=== PATIENT | male | born 1955 | race Caucasian/White ===

== ENCOUNTER 2016-10-30 05:30 | Inpatient (IN) | payer OTHER ==
[2016-10-15 10:21] VITALS: BMI 25.0
--- NOTE | 2016-10-15 10:56 | PAT Medication Instructions ---
Service Date Oct 15, 2016. Current Home Medication List Albuterol Sulfate (Proair Respiclick), 2 PUFFS INH Q4H PRN for RN Lisinopril (Zestril), 10 MG PO QAM [Oxycodone], 1 TAB PO PRN Medication Instructions For Your Scheduled Surgery - Hold the following medications the morning of surgery: Lisinopril (Zestril), 10 MG PO QAM - Take the following medications the morning of surgery with a sip of water: Albuterol Sulfate (Proair Respiclick), 2 PUFFS INH Q4H PRN for RN (bring with you to hospital morning of surgery; use if needed) [Oxycodone], 1 TAB PO PRN (okay to take up to 4 hours prior to surgery if needed ) - Take the following medications as scheduled the night before surgery: Albuterol Sulfate (Proair Respiclick), 2 PUFFS INH Q4H PRN for RN (if needed) [Oxycodone], 1 TAB PO PRN (if needed) If you have any questions please call us at [phone] or [phone] or [phone]
--- NOTE | 2016-10-15 11:21 | DIAGNOSTIC IMAGING REPORT ---
TWO VIEW CHEST CLINICAL HISTORY: Preoperative examination. FINDINGS: PA and lateral chest radiographs are obtained. No prior studies are available for comparison at the time of dictation. The heart is top normal for projection and there is atherosclerotic calcification of the thoracic aorta. Emphysema and chronic interstitial thickening are similar to previous. There are scattered calcified granulomas. No airspace consolidation or pleural effusion is seen. There is no pneumothorax. The bony thorax appears intact. IMPRESSION: Emphysema with no active disease in the chest. Electronically signed by: Feliciano Dunlap M.D. 10/15/2016 11:20 AM Dictated Date/Time: 10/15/2016 11:19 AM
[2016-10-15 11:40] LABS: BASO % 0.5 %; BASO ABS # 0.04 K/uL (0-0.2); COMPLETE YES; EOS % 2.2 %; HEMATOCRIT 50.6 % (42-52); IG% 0.1 %; LYMPH % 28.7 %; LYMPH ABS # 2.13 K/uL (1.2-3.4); MEAN CORPUSCULAR HEMOGLOBIN 31.5 pg (25-34); MONO % 8.2 %; NEUT % 60.3 %; PLATELET COUNT 156 K/uL (130-400); RED BLOOD COUNT 5.62 M/uL (4.7-6.1); WHITE BLOOD COUNT 7.42 K/uL (4.8-10.8)
[2016-10-15 11:46] LABS: URINE APPEARANCE CLEAR (CLEAR); URINE BILIRUBIN NEG (NEG); URINE COLOR YELLOW; URINE NITRITE NEG (NEG); URINE PH 7.5 (4.5-7.5); URINE SPECIFIC GRAVITY 1.008 (1.000-1.030); UROBILINOGEN NEG (NEG)
[2016-10-15 11:51] LABS: MANUAL MICROSCOPIC REQUIRED? NO; REVIEW REQ? NO
[2016-10-15 12:08] LABS: BUN/CREATININE RATIO 12.6 (10-20); CALCIUM 10.1 mg/dl (8.5-10.1); CREATININE 1.1 mg/dl (0.60-1.40); POTASSIUM 4.6 mmol/L (3.5-5.1)
[~2016-10-30] VITALS: Ht 165.1 cm; Wt 70.0 kg
[2016-10-30] VITALS (10 sets, daily range): BP systolic 135–150; BP diastolic 84–109; PULSE 81–97; TEMP 36–36.7; O2SAT 94–97; Ht 165.1 cm; Wt 70.0 kg
[~2016-10-30 05:30] MED LIST: ALBU18002 INH; LISI-461 PO; OXYCODONE PO
[2016-10-30] MEDS ORDERED: LACTATED RINGER'S 1000ML 1,000 ML IV SCH (06:00)
[2016-10-30] MEDS ORDERED: PREGABALIN 75 MG CAP PO SCH (06:00)
[2016-10-30] MEDS ORDERED: CeleBREX 200 MG CAP PO SCH (06:00)
[2016-10-30] MEDS ORDERED: CEFAZOLIN 2000 MG/60 ML D5W IV SCH (06:00)
[2016-10-30] MEDS ORDERED: FENTANYL CITRATE INJ 50 MCG/1 ML 2 ML VIAL ONE ×2 (06:28→08:32)
[2016-10-30] MEDS ORDERED: MIDAZOLAM HCL 1 MG/ML 2ML VIAL ONE (06:28)
[2016-10-30] MEDS ORDERED: PROPOFOL IV EMULSION 10 MG/ML 100 ML VIAL IV ONE (06:37)
[2016-10-30] MEDS ORDERED: REMIFENTANIL 1 MG VIAL ONE ×2 (06:39→08:27)
[2016-10-30] MEDS ORDERED: THROMBIN FOR SOLN 20000 UNIT KIT ONE (06:51)
[2016-10-30] MEDS ORDERED: THROMBIN 5000 UNITS KIT ONE (06:51)
[2016-10-30] MEDS ORDERED: BUPIVACAINE/EPINEPHRINE 0.25% 1:200,000 30 ML VIAL ONE (06:52)
[2016-10-30] MEDS ORDERED: BACITRACIN 50000 UNIT VIAL ONE (06:52)
--- NOTE | 2016-10-30 07:36 | History & Physical Bridge Note ---
H&P Re-Evaluation Bridge Note: I have examined the patient, reviewed the History & Physical and in the interval since the performance of the History & Physical I have noted the following changes of clinical significance: No changes noted
[2016-10-30] MEDS ORDERED: LABETALOL HCL IV 5 MG/ML 20ML IV PRN (08:00)
[2016-10-30] MEDS ORDERED: ATROPINE SULFATE 0.1 MG/ML 5ML SYR IV PRN (08:00)
[2016-10-30] MEDS ORDERED: EpHEDrine SULFATE INJ 50 MG/ML AMP IV PRN (08:00)
[2016-10-30] MEDS ORDERED: HYDROmorphone INJ 1 MG/ML SYR IV PRN ×2 (08:00→09:45)
[2016-10-30] MEDS ORDERED: ONDANSETRON INJ 2 MG/ML 2 ML VIAL IV PRN ×2 (08:00→09:45)
[2016-10-30] MEDS ORDERED: MEPERIDINE HCL 25 MG/ML CARP IV PRN (08:00)
[2016-10-30] MEDS ORDERED: HYDROmorphone INJ 2 MG/ML SYR/VIAL ONE ×2 (08:32→09:33)
[2016-10-30] MEDS ORDERED: DEXAMETHASONE SOD INJ 4 MG/ML VIAL ONE (08:54)
[2016-10-30] MEDS ORDERED: LIDOCAINE HCL 2% 2 ML VIAL (20MG/ML) ONE (08:54)
[2016-10-30] MEDS ORDERED: SUCCINYLCHOLINE CHLORIDE 20 MG/ML 10 ML VIAL IV ONE (08:54)
[2016-10-30] MEDS ORDERED: PROPOFOL IV EMULSION 10 MG/ML 20 ML VIAL IV ONE (08:54)
[2016-10-30] MEDS ORDERED: FLOSEAL HEMOSTATIC MATRIX 5ML TOP ONE (09:30)
[2016-10-30] MEDS ORDERED: ONDANSETRON INJ 2 MG/ML 2 ML VIAL ONE (09:36)
[2016-10-30] MEDS ORDERED: PHENYLEPHRINE 100MCG/ML 5ML SYR ONE (09:36)
[2016-10-30] MEDS ORDERED: EpHEDrine SULFATE 50MG/5ML SYR ONE (09:36)
--- NOTE | 2016-10-30 09:40 | [facility] Post Operative Brief Note ---
Immediate Operative Summary Operative Date Oct 30, 2016. Pre-Operative Diagnosis SPINAL STENOSIS Post-Operative Diagnosis SME PREOP Procedure(s) Performed C3-C6 POSTERIOR LAMINECTOMY AND POSTERIOR SPINAL FUSION WITH SPINAL MONITORING Surgeon DR. Cheikh VEGA Material Yard Clerk Surgeon(s) Mica LEAHY PAC Estimated Blood Loss 100ml Findings dict Specimens NONE
[2016-10-30] MEDS ORDERED: LORAZEPAM INJ 1 MG in SYRINGE 0 ML IV PRN (09:45)
[2016-10-30] MEDS ORDERED: HYDROmorphone INJ 0.5 MG/0.5 ML SYR IV PRN (09:45)
[2016-10-30] MEDS ORDERED: ACETAMINOPHEN 325 MG TAB PO PRN (09:45)
[2016-10-30] MEDS ORDERED: OXYCODONE HCL IR 5 MG TAB (IMMEDIATE RELEASE) PO PRN (09:45)
[2016-10-30] MEDS ORDERED: ALBUTEROL HFA INHALER 18 GM INH PRN (09:45)
[2016-10-30] MEDS ORDERED: LORAZEPAM 1 MG TAB PO PRN (09:45)
--- NOTE | 2016-10-30 10:02 | [facility] Operative Report ---
Operative Report Operative Date Oct 30, 2016. Pre-Operative Diagnosis SPINAL STENOSIS Post-Operative Diagnosis SME PREOP Procedure(s) Performed #1 C3 C4 C5 and 6 laminectomies #2 C3 to C6 posterior fusionbilateral #3 C3 to C6 lateral mass screw instrumentationbilateral with K2 M lateral mass screws #4 application of local bone with morselization with the bone mill Surgeon DR. Cheikh VEGA Application Development Director Surgeon(s) Mica LEAHY PAC Estimated Blood Loss 100ml Findings dict Specimens NONE Anesthesia GETA Complication(s) None Disposition Recovery Room / PACU Description of Procedure After identification the patient operative level he's brought to the OR where he underwent induction of anesthesia. He was positioned prone after application spinal cord monitoring leads and Gleason tongs with skull pins. All bony processes well padded. Arms are tucked to the sides and well-padded. Shoulders were taped distally. Posterior cervical area sterilely prepped and draped in usual fashion. I then identified the operative levels and after the skin with half percent Marcaine with epinephrine. Skin incision made from spinous process of C2 to C7. Posterior exposure was accomplished with muscle dissection out to the lateral aspect of the lateral masses bilaterally. Retractors were placed and levels confirmed with fluoroscopy and a marker at C3 4. I then marked the operative levels and prepared lateral masses for subsequent lateral mass screw insertion by creating starting holes the burn drilling to 14 mm unicortical holes with the drill. I did this bilaterally from C3 to C6. I confirmed all screw tracts were unicortical with a ball- tipped probe. An pretapped all screw holes and applied bone wax to the holes. I then seated perform a laminectomy of C3 C4 C5 and C6 the midline by creating a trough laterally with the bur. The lamina and completed the trough with small Kerrison punch. I then removed the interspinous ligament at C2 3 and C6 7 as well as ligament flavum at each level and removed the lamina from C3 to 6 en bloc. This bone was then used as autograft after morselization with a bone mill. I then completed a decompression with Kerrisons perform foraminotomies as necessary focus my tension the right cerebellar is most symptomatically and undercutting the superior edges C7 lamina as well to remove excess ligament flavum. I palpated the nerve roots are free. We then extended the neck to restore some lordosis. I then applied. For hemostasis. I then place lateral mass screws bilaterally from C3 to C6 at all levels using K2M lateral mass screws. Screws were all unicortical. They'll have good purchase. I checked screw length trajectory and position with fluoroscopy. I then applied rods in and From C3-6 bilaterally and final tightened. A cross-link was placed and final tightened. I irrigated with bacitracin solution. Then decorticated the lateral masses from C3 to 6 with a high-speed margarita on both sides and then packed the lateral gutters with bone graft mixture consisting of DBM putty morcellized local bone and infuse BMP collagen sponges and tricalcium phosphate log. From hemostasis and closed in layered fashion with DIPAK drain. All spinal cord monitoring signals were stable throughout the procedure. I attest to the content of the Intraoperative Record and any orders documented therein. Any exceptions are noted below.
[2016-10-30] MEDS: FENTANYL CITRATE INJ 50 MCG/1 ML 2 ML VIAL IV PRN ×4 (10:40→10:55)
--- NOTE | 2016-10-30 10:49 | Anesthesiology Progress Note ---
Anesthesia Post Op Note Date & Time Oct 30, 2016 at 10:49 Vital Signs Pain Intensity: 8.0 Vital Signs Past 12 Hours Date Time Temp Pulse Resp B/P (MAP) Pulse Ox O2 Delivery O2 Flow Rate FiO2 10/30/16 10:40 36.1 95 16 147/97 99 Oxymask 5 10/30/16 10:30 94 16 146/95 99 Oxymask 5 10/30/16 10:26 81 14 97 Mask 11.0 10/30/16 10:20 91 16 144/94 99 Oxymask 10 10/30/16 10:10 94 16 137/95 97 Oxymask 10 10/30/16 10:00 36.2 86 16 117/74 98 Oxymask 10 10/30/16 05:58 36.7 85 20 135/109 96 Room Air 10/30/16 05:52 36.7 85 20 135/109 (118) 96 Room Air Notes Mental Status: alert / awake / arousable, participated in evaluation Pt Amnestic to Procedure: Yes Nausea / Vomiting: adequately controlled Pain: adequately controlled Airway Patency, RR, SpO2: stable & adequate BP & HR: stable & adequate Hydration State: stable & adequate Anesthetic Complications: no major complications apparent
[2016-10-30] MEDS ORDERED: ALBUT/IPRATROP 3MG/0.5MG NEB 3 ML VIAL INH ONE (12:30)
[2016-10-30] MEDS: OXYCODONE/ACETAMINOPHEN 5-325 TAB PO PRN ×2 (12:33→16:30)
[2016-10-30] MEDS: SODIUM CHLORIDE 0.9% 1000ML 1,000 ML IV SCH ×2 (12:33→23:25)
[2016-10-30] MEDS ORDERED: PNEUMOCOCCAL POLYSACCHARIDES 25 MCG/0.5 ML VIAL/SYR IM. ONE (14:00)
[2016-10-30] MEDS ORDERED: PNEUMOCOCCAL ADMINISTRATION CHARGE ONE (14:00)
--- NOTE | 2016-10-30 14:20 | DIAGNOSTIC IMAGING REPORT ---
Cervical spine CERVICAL 2 OR 3 VIEWS CLINICAL HISTORY: C3-C6 PSF posterior fusion TECHNIQUE: Image intensifier COMPARISON STUDY: None FINDINGS: Findings consistent with a posterior fusion from C3 through C6 IMPRESSION: Image intensifier usage for a posterior fusion from C3 through C6 Electronically signed by: Harjit Garcia M.D. 10/30/2016 2:18 PM Dictated Date/Time: 10/30/2016 2:18 PM
[2016-10-30] MEDS: CEFAZOLIN IV 1,000 MG in DEXTROSE 5% 50ML 50 ML IV SCH ×2 (16:30→23:25)
[2016-10-30] MEDS: DEXAMETHASONE INJ 6 MG in SYRINGE 0 ML IV SCH (21:24)
[2016-10-31 03:00] VITALS: BP 153/88; PULSE 78; TEMP 36.6; O2SAT 95
[2016-10-31] MEDS: DEXAMETHASONE INJ 6 MG in SYRINGE 0 ML IV SCH ×2 (05:39→13:21)
[2016-10-31] MEDS: OXYCODONE/ACETAMINOPHEN 5-325 TAB PO PRN ×3 (05:40→21:57)
[2016-10-31] MEDS: CEFAZOLIN IV 1,000 MG in DEXTROSE 5% 50ML 50 ML IV SCH (07:22)
--- NOTE | 2016-10-31 07:32 | Anesthesiology Progress Note ---
Anesthesia Post Op Note Date & Time Oct 31, 2016 at 07:32 Vital Signs Vital Signs Past 12 Hours Date Time Temp Pulse Resp B/P (MAP) Pulse Ox O2 Delivery O2 Flow Rate FiO2 10/31/16 03:00 36.6 78 16 153/88 (109) 95 Room Air 10/30/16 23:30 36.6 85 16 149/86 (107) 94 Room Air 10/30/16 23:20 Room Air Notes Mental Status: alert / awake / arousable, participated in evaluation Pt Amnestic to Procedure: Yes Nausea / Vomiting: adequately controlled Pain: adequately controlled Airway Patency, RR, SpO2: stable & adequate BP & HR: stable & adequate Hydration State: stable & adequate Anesthetic Complications: no major complications apparent
[2016-10-31 07:52] VITALS: BP 162/96; PULSE 71; TEMP 36.7; O2SAT 94
[2016-10-31 08:07] VITALS: O2SAT 94
[2016-10-31] MEDS: LISINOPRIL 10 MG TAB PO SCH (08:20)
--- NOTE | 2016-10-31 09:33 | Orthopedic Progress Note ---
Orthopedic Progress Note Date of Service Oct 31, 2016. 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 Objective calves soft nontender, N/V intact (preop numbness persists), dressing C/D/I, A& O x3, hemovac drainage Date Time Temp Pulse Resp B/P (MAP) Pulse Ox O2 Delivery O2 Flow Rate FiO2 10/31/16 08:07 94 Room Air 10/31/16 07:52 36.7 71 14 162/96 (118) 94 Room Air 10/31/16 07:15 Room Air 10/31/16 03:00 36.6 78 16 153/88 (109) 95 Room Air 10/30/16 23:30 36.6 85 16 149/86 (107) 94 Room Air 10/30/16 23:20 Room Air 10/30/16 19:11 36.5 82 16 138/89 (105) 96 Nasal Cannula 2.0 10/30/16 15:45 Room Air 10/30/16 14:04 97 16 150/87 (108) 10/30/16 13:28 36.5 92 14 147/90 (109) 97 Nasal Cannula 2.0 10/30/16 12:12 36.3 88 16 145/90 (108) 96 Nasal Cannula 4.0 10/30/16 11:43 36.0 89 16 144/88 (106) 95 Nasal Cannula 2.0 10/30/16 11:15 94 Nasal Cannula 2.0 10/30/16 11:15 94 Nasal Cannula 2.0 10/30/16 11:15 36.4 85 16 137/84 (101) 94 Nasal Cannula 2.0 10/30/16 11:00 36.6 81 16 137/91 99 Nasal Cannula 2 10/30/16 10:50 80 16 140/89 99 Oxymask 5 10/30/16 10:40 36.1 95 16 147/97 99 Oxymask 5 10/30/16 10:30 94 16 146/95 99 Oxymask 5 10/30/16 10:26 81 14 97 Mask 11.0 10/30/16 10:20 91 16 144/94 99 Oxymask 10 10/30/16 10:10 94 16 137/95 97 Oxymask 10 10/30/16 10:00 36.2 86 16 117/74 98 Oxymask 10 Assessment & Plan Assessment: stable-preop radic improved Plan: home tomorrow, cont drain
[2016-10-31] MEDS ORDERED: RXC5 PO (09:38)
--- NOTE | 2016-10-31 09:39 | Discharge Instructions ---
Discharge Instructions Date of Service Oct 31, 2016. Admission Reason for Admission: Spinal Stenosis Discharge Discharge Diagnosis / Problem: same Discharge Goals Goal(s): Decrease discomfort Activity Recommendations Activity Limitations: per Instructions/Follow-up section . Instructions / Follow-Up Instructions / Follow-Up ACTIVITY RECOMMENDATIONS: SELF CARE INSTRUCTIONS AFTER CERVICAL FUSIONS 1. No smoking. Smoking drastically decreases the chance of a solid fusion. 2. No bending, lifting more than 5 pounds, or twisting (roll like a log when turning in bed). 3. You may shower 3 days after surgery. Thoroughly dry wound. Do not soak in the tub. 4. Cervical collar: Must be worn at all times including sleeping. You may remove the brace only to bath, eat and if you are sitting in a recliner. 5. Please walk as much as you can for exercise. Gradually increase the distance that you walk as your endurance increases. SPECIAL CARE INSTRUCTIONS: VERY IMPORTANT TO READ AND REVIEW C. Complications are uncommon, but please contact us if you have any signs or symptoms of: 1. wound infection (fever higher than 102.5 degrees F, redness, separation of wound, drainage, or increasing pain from the incision) 2. blood clots in legs (pain, swelling, redness and warmth in legs) 3. urinary tract infection (fever higher than 102.5 degrees, burning upon urination or increased frequency of urination) 4. nerve problems (inability to walk on your toes or heels, numbness, loss of bowel or bladder control) 5. any other symptoms that concern you. D. Please call the office at if you have any concerns or questions about your operation or recovery. MANAGING PAIN AFTER SPINAL SURGERY 1. Narcotic medication is intended for short-term use and will be provided for surgical pain. Surgical pain usually lasts for a period of 4-6 weeks. Narcotic medication includes Percocet, Vicodin, Darvocet, Tylenol #3 or Lortab. 2. Longer-term pain is more appropriately treated with non-narcotic medication such as Tylenol ES. 3. Muscle spasm is not appropriately treated with narcotics. Muscle relaxers such as Soma, Flexeril or Skelaxin can be used along with Tylenol ES. 4. Remember that we all live with some "aches and pains". This is not unusual or uncommon after an injury or as we get older. 5. We will provide appropriate medication within the normal guidelines of their prescribed use. We will also be very cautious and aware of potential abuse and extended duration of patients' medication needs. 6. Please allow 2-3 days to process refills. Prescriptions will not be mailed but must be picked up at the office. FOLLOW UP VISIT: Keep your scheduled follow-up appointment. Any questions, please call the office at . Current Hospital Diet Patient's current hospital diet: Regular Diet Discharge Diet Recommended Diet: Regular Diet Procedures Procedures Performed: #1 C3 C4 C5 and 6 laminectomies #2 C3 to C6 posterior fusionbilateral #3 C3 to C6 lateral mass screw instrumentationbilateral with K2 M lateral mass screws #4 application of local bone with morselization with the bone mill Pending Studies Studies pending at discharge: no Medical Emergencies . Who to Call and When: Medical Emergencies: If at any time you feel your situation is an emergency, please call 911 immediately. . Non-Emergent Contact Non-Emergency issues call your: Surgeon . "Provider Documentation" section prepared by Kike Lozano. . VTE Core Measure Inpt VTE Proph given/why not?: [facility] [place] Results: patient reviewed within database, no issues identified ( checked by GERSON)
[2016-10-31 11:57] VITALS: BP 144/86; PULSE 67; TEMP 36.5; O2SAT 95
[2016-10-31 15:39] VITALS: BP 146/93; PULSE 71; TEMP 36.7; O2SAT 95
[2016-10-31 22:50] VITALS: BP 131/82; PULSE 86; TEMP 36.9; O2SAT 92
[2016-11-01] MEDS: OXYCODONE/ACETAMINOPHEN 5-325 TAB PO PRN ×2 (07:08→13:22)
[2016-11-01 07:58] VITALS: BP 130/90; PULSE 70; TEMP 36.6; O2SAT 94
[2016-11-01 08:06] VITALS: O2SAT 94
[2016-11-01] MEDS: LISINOPRIL 10 MG TAB PO SCH (08:12)
[2016-11-01 09:33] VITALS: BP 130/90; PULSE 70; TEMP 36.6; O2SAT 94
--- NOTE | 2016-11-01 11:57 | Orthopedic Progress Note ---
Orthopedic Progress Note Date of Service Nov 01, 2016. Subjective Post OP Day: 2 Reports: feeling well, pain controlled w PO medications, Denies: complaints, chest pain, SOB, nausea / vomiting, light headedness, calf pain, using QUALITY IMPROVEMENT ANALYST Objective calves soft nontender, N/V intact, dressing C/D/I, A&O x3, hemovac drainage Date Time Temp Pulse Resp B/P (MAP) Pulse Ox O2 Delivery O2 Flow Rate FiO2 11/01/16 09:33 36.6 70 20 94 Room Air 11/01/16 08:06 94 Room Air 11/01/16 07:58 36.6 70 20 130/90 (103) 94 Room Air 11/01/16 07:00 Room Air 10/31/16 23:55 Room Air 10/31/16 22:50 36.9 86 16 131/82 (98) 92 Room Air 10/31/16 15:39 36.7 71 16 146/93 (110) 95 Room Air 10/31/16 15:00 Room Air Assessment & Plan Assessment: stable-preop radic improved Plan: drain output decreased, pain controlled, d/c home
--- NOTE | 2016-11-01 12:02 | Discharge Summary ---
Orthopedic Discharge Summary Admission Date/Reason Oct 30, 2016 at 10:37 Spinal Stenosis. Discharge Date/Disposition Nov 01, 2016 Home Diagnosis Principal Diagnosis: same Procedure(s) Performed C3-6 lami/fusion Medication Reconciliation New Medications: Oxycodone HCl (Oxycodone HCl) 5 Mg Tab 5 MG PO Q4H PRN for moderate pain (pain scale 4-6), #90 TAB Continued Medications: Albuterol Sulfate (Proair Respiclick) 108 Mcg/Act Aer 2 PUFFS INH Q4H PRN for RN Lisinopril (Zestril) 10 Mg Tab 10 MG PO QAM, TAB Discontinued Medications: [Oxycodone] () 1 TAB PO PRN Admission Physical Exam As per Admitting History & Physical. Hospital Course He was admitted for elective cervical fusion, did well, was transferred to floor , had improvement in preop symptoms, he was HD stable, pain was controlled, ambulated independently, and was d/cd POD 2. Discharge Instructions Please refer to the electronic Patient Visit Report (Discharge Instructions) for additional information.
[2016-11-01 13:27] VITALS: BP 115/80; PULSE 80; O2SAT 93
== END 2016-11-01 14:44 | disposition home or self-care (01) | DRG 472 ==
LOC: C.ACU 05:30 → C.3E 10:37 → ENRESERV 10:45
PROVIDERS: ADMIT Orthopaedic Surgery Orthopaedic Surgery of the Spine; ATTEND Orthopaedic Surgery Orthopaedic Surgery of the Spine
PROC: 0RG2071 Fusion of 2 or more Cervical Vertebral Joints with Autologous Tissue Substitute, Posterior Approach, Posterior Column, Open Approach (ICD-10-PCS; principal; 2016-10-30 07:30)
DX: M50.11 Cervical disc disorder with radiculopathy, high cervical region (principal); M50.01 Cervical disc disorder with myelopathy, high cervical region; M48.02 Spinal stenosis, cervical region; J44.9 Chronic obstructive pulmonary disease, unspecified; I10 Essential (primary) hypertension; G62.9 Polyneuropathy, unspecified; N40.0 Benign prostatic hyperplasia without lower urinary tract symptoms; F17.210 Nicotine dependence, cigarettes, uncomplicated; Z79.1 Long term (current) use of non-steroidal anti-inflammatories (NSAID); Z23 Encounter for immunization; Z79.891 Long term (current) use of opiate analgesic; Z79.899 Other long term (current) drug therapy